=== PATIENT | female | born 1955 | race Caucasian/White ===

== ENCOUNTER 2017-09-10 21:07 | Inpatient (IN) | payer MEDICAID ==
[2017-09-10 21:00] VITALS: BP 128/56
--- NOTE | 2017-09-10 21:00 | NUR ---
RECEIVED PATIENT FROM [facility] VIA AMBULANCE/STRETCHER. PATIENT RECEIVED STABLE WITH NO SIGNS OF PAIN, SOB, OR ACUTE DISTRESS. PT IS 61 Y/O FEMALE, A/O X3-4 & FORGETFUL. PATIENT ADMITTED TO ARU FOR DX OF RIGHT CVA, LEFT SIDED WEAKNESS. PERTINENT ASSESSMENT DONE. PT IS ABLE TO MAKE NEEDS KNOWN. BED IN LOW POSITION X2 SIDE RAILS UP. CALL LIGHT PLACED WITHIN REACH OF PATIENT. ENCOURAGED PT TO USE CALL LIGHT WHEN NEEDING ASSISTANCE. WILL CONTINUE TO MONITOR PATIENT THROUGH SHIFT.
[2017-09-10] MEDS ORDERED: ASPI81TA31 PO (21:42)
[2017-09-10] MEDS ORDERED: DOCU100C36 PO (21:42)
[2017-09-10] MEDS ORDERED: CLOP75TA33 PO (21:42)
[2017-09-10] MEDS ORDERED: METF500T4 PO (21:42)
[2017-09-10] MEDS ORDERED: AMLO10TA2 PO (21:42)
[2017-09-10] MEDS ORDERED: INSU100I14 SQ (21:42)
[2017-09-10] MEDS ORDERED: ATOR40TA PO (21:42)
[2017-09-10] MEDS ORDERED: INSU3INS6 SQ (21:42)
[2017-09-10] MEDS ORDERED: LISI40TA4 PO (21:42)
[2017-09-10] MEDS ORDERED: Z GUARD REMEDY PASTE 57 GM TUBE TOP PRN (22:00)
[2017-09-10] MEDS ORDERED: DEXTROSE 50% 50 ML DISP.SYRIN IV PRN (23:15)
--- NOTE | 2017-09-11 05:33 | NUR ---
patient slept intermittently through the shift. no signs of pain, sob, or acute distress. able to make needs known. vital signs stable through shift. hob elevated >30 degrees. safety measures implemented. call light placed within reach of patient. encouraged pt to use call light when needing to use the restroom. bed in low position x2 side rails up. will endorse to day shift nurse.
[2017-09-11] MEDS: BLOOD SUGAR DIAGNOSTIC 1 EACH STRIP VI SCH ×4 (06:36→20:59)
[2017-09-11 07:53] LABS: BASOPHILS # (AUTO) 0.1 K/uL (0.0-8.0); BASOPHILS % (AUTO) 0.6 % (0.0-2.0); EOSINOPHILS # (AUTO) 0.1 K/uL (0.0-0.7); EOSINOPHILS % (AUTO) 1.8 % (0.0-7.0); HEMOGLOBIN 15.1 g/dL (10.9-14.3); LYMPHOCYTES # (AUTO) 2.1 K/uL (20.0-40.0); LYMPHOCYTES % (AUTO) 25.7 % (20.5-51.5); MEAN CORPUSCULAR HEMOGLOBIN 32.2 uug (24.7-32.8); MEAN CORPUSCULAR HGB CONC 34 g/dL (32.3-35.6); MEAN CORPUSCULAR VOLUME 93.6 fL (75.5-95.3); MONOCYTES # (AUTO) 0.5 K/uL (2.0-10.0); MONOCYTES % (AUTO) 6.8 % (0.0-11.0); NEUTROPHILS # (AUTO) 5.3 K/uL (1.8-8.9); NEUTROPHILS % (AUTO) 65.1 % (38.5-71.5); PLATELET COUNT (AUTO) 304 K/uL (179-408); RED BLOOD CELL COUNT(AUTO) 4.71 MIL/uL (3.63-4.92); WHITE BLOOD COUNT (AUTO) 8.1 K/uL (3.8-11.8)
--- NOTE | 2017-09-11 08:00 | NUR ---
patient noted lying in bed watching tv, no complaints of pain at this time, no signs of distress noted, call light in reach, bed locked and in lowest position, long pauses noted when patient asked questions
[2017-09-11] MEDS: METFORMIN HCL 500 MG TABLET PO SCH (08:31)
[2017-09-11] MEDS: CLOPIDOGREL 75 MG TABLET PO SCH (08:32)
[2017-09-11] MEDS: ASPIRIN 81 MG TAB.CHEW PO SCH (08:32)
[2017-09-11] MEDS: AMLODIPINE 10 MG TABLET PO SCH (08:33)
[2017-09-11] MEDS: LISINOPRIL 20 MG TABLET PO SCH ×2 (08:34→20:56)
[2017-09-11] MEDS ORDERED: Medication Not On Formulary EA (Lisinopril 40 MG) PO SCH (09:00)
[2017-09-11 09:35] VITALS: BP 160/77
[2017-09-11 09:44] LABS: MAGNESIUM 1.7 mg/dL (1.8-2.4); PHOSPHOROUS 4.1 mg/dL (2.5-4.9); POTASSIUM 4.4 mmol/L (3.5-5.1)
[2017-09-11] MEDS: INSULIN REGULAR, HUMAN 300 UNIT/3 ML VIAL SQ PRN ×2 (12:26→17:22)
[2017-09-11 19:30] VITALS: BP 143/66
--- NOTE | 2017-09-11 20:00 | NUR ---
Pt sitting in her wheelchair. AAO x3. VS stable. No acute distress noted. No c/o pain or discomfort. Safety measures maintained. Call light and personal belongings maintained. Will continue to monitor.
[2017-09-11] MEDS: ATORVASTATIN 40 MG TABLET PO SCH (20:56)
[2017-09-11] MEDS: INSULIN REGULAR, HUMAN 300 UNITS/3 ML VIAL SQ PRN (21:01)
--- NOTE | 2017-09-12 05:16 | NUR ---
Pt slept intermittently at night. Stable. Meds given per MD's order. Assisted to the bathroom as needed. Able to make needs known. All needs attended to promptly. Will endorse to day shift RN. Continue to monitor.
[2017-09-12] MEDS: BLOOD SUGAR DIAGNOSTIC 1 EACH STRIP VI SCH ×4 (06:40→20:07)
--- NOTE | 2017-09-12 08:00 | NUR ---
RECEIVED PATIENT AWAKE, ALERT X3. PATIENT WITHDRAWN. MORNING CARE DONE, SPONGE BATH DONE WITH MAXIMUM ASSISTANCE. ASSISTED UP TO BED. NOT IN ANY PAIN OR DISCOMFORT. CALL LIGHT WITHIN REACH.
[2017-09-12] MEDS: CLOPIDOGREL 75 MG TABLET PO SCH (08:22)
[2017-09-12] MEDS: AMLODIPINE 10 MG TABLET PO SCH (08:22)
[2017-09-12] MEDS: ASPIRIN 81 MG TAB.CHEW PO SCH (08:22)
[2017-09-12] MEDS: LISINOPRIL 20 MG TABLET PO SCH ×2 (08:22→20:05)
[2017-09-12] MEDS: METFORMIN HCL 500 MG TABLET PO SCH (08:22)
[2017-09-12] MEDS: INSULIN REGULAR, HUMAN 300 UNIT/3 ML VIAL SQ PRN ×2 (08:23→12:03)
--- NOTE | 2017-09-12 09:00 | NUR ---
UP WITH PHYSICAL THERAPY TOLERATING THERAPY WELL.
--- NOTE | 2017-09-12 11:48 | NUR ---
PATIENT WITH HEADACHE RATED 3/10. BP OF 155/68 ND 73. NO SOB, BLURRED VISION OR NEW WEAKNESS. A/A X3. PAGED DR. ROMERO FOR ORDERS.
--- NOTE | 2017-09-12 13:36 | NUR ---
Head ache is relieved. Patient resting in bed.
[2017-09-12] MEDS: HYDROCHLOROTHIAZIDE 25 MG TABLET PO SCH (15:55)
--- NOTE | 2017-09-12 16:09 | NUR ---
SEEN AND EXAMINED BY DR ROMERO. STILL WITH HEADACHE, TOLERABLE RATED 3/10. PRN TYLENOL GIVEN.
[2017-09-12] MEDS: ACETAMINOPHEN 325 MG TABLET PO PRN (16:11)
--- NOTE | 2017-09-12 19:15 | NUR ---
Pt resting comfortably in bed and watching TV. AAO x3. No new weakness noted. No acute distress noted. No c/o pain or discomfort at this time. HOB 30 degrees elevated and tolerating well. Able to make needs known. Complies slowly. Safety measures maintained. Call light and personal belongings within reach. Will continue to monitor.
[2017-09-12 20:00] VITALS: BP 143/66
[2017-09-12] MEDS: ATORVASTATIN 40 MG TABLET PO SCH (20:06)
[2017-09-12] MEDS: INSULIN REGULAR, HUMAN 300 UNITS/3 ML VIAL SQ PRN (20:09)
--- NOTE | 2017-09-13 05:15 | NUR ---
Pt slept comfortably at night. Meds and insulin coverage given per MD's order. Assisted to the bathroom as needed. All needs attended to promptly. Will endorse to day shift RN. Continue to monitor.
[2017-09-13] MEDS: BLOOD SUGAR DIAGNOSTIC 1 EACH STRIP VI SCH ×4 (06:34→20:47)
--- NOTE | 2017-09-13 08:30 | NUR ---
Received patient awake, alert and oriented, verbally responsive to tactile and verbal stimuli. No SOB, distress or discomforts noted. All needs attended and anticipated. Call light placed within her reach. encouraged patient to use call light whenever assistance is needed. Will continue to monitor.
[2017-09-13 08:36] VITALS: BP 143/77
[2017-09-13] MEDS: LISINOPRIL 20 MG TABLET PO SCH ×2 (09:04→20:47)
[2017-09-13] MEDS: AMLODIPINE 10 MG TABLET PO SCH (09:04)
[2017-09-13] MEDS: ASPIRIN 81 MG TAB.CHEW PO SCH (09:04)
[2017-09-13] MEDS: CLOPIDOGREL 75 MG TABLET PO SCH (09:05)
[2017-09-13] MEDS: HYDROCHLOROTHIAZIDE 25 MG TABLET PO SCH (09:05)
[2017-09-13] MEDS: METFORMIN HCL 500 MG TABLET PO SCH (09:05)
[2017-09-13] MEDS: INSULIN REGULAR, HUMAN 300 UNIT/3 ML VIAL SQ PRN ×3 (12:09→20:51)
--- NOTE | 2017-09-13 12:23 | NUR ---
Patient awake, alert and oriented watching television. no SOB, distress or discomforts noted. all needs attended and anticipated. Call light placed within reach. Will continue to monitor.
[2017-09-13] MEDS: ACETAMINOPHEN 325 MG TABLET PO PRN (15:38)
--- NOTE | 2017-09-13 18:03 | NUR ---
patient awake, alert and oriented, remained stable throughout the shift. All needs attended and anticipated. call light placed within reach. patient was encouraged to use call light whenever assistance is needed. No shortness of breath, distress or any display of discomforts noted at this time. Will continue to monitor.
--- NOTE | 2017-09-13 18:54 | NUR ---
Patient remained stable throughout the shift. all needs were attended and anticipated. call light placed within her reach. patient was encouraged to use call light whenever assistance is needed. bed alarm on for safety. Will endorse to incoming shift.
[2017-09-13 19:30] VITALS: BP 111/49
--- NOTE | 2017-09-13 19:30 | NUR ---
Received patient from day shift nurse. Shift report at bedside. Patient stable at start of shift, lying comfortably in bed with no signs of pain, sob, or acute distress. pertinent assessment completed. vital signs stable at start of shift. bed in low position x2 side rails up. bed alarm on and checked at start of shift. call light placed within reach of pt. will continue to monitor pt through shift.
[2017-09-13] MEDS: ATORVASTATIN 40 MG TABLET PO SCH (20:46)
--- NOTE | 2017-09-13 20:46 | NUR ---
Patient Diastolic BP low at start of shift. BP 111/49. Held bedtime BP med. will continue to monitor patient and reassess BP.
[2017-09-14] MEDS: ACETAMINOPHEN 325 MG TABLET PO PRN ×3 (00:11→20:14)
--- NOTE | 2017-09-14 05:54 | NUR ---
Patient stable through shift. no signs of sob or acute distress. slept intermittently through shift. complained of headache during the night. administered Tylenol PRN as ordered per md. patient slept after administration of Tylenol. vital signs stable through shift. all needs attended to. medications administered as ordered per md. safety measures implemented. call light within reach of pt. will endorse to day shift nurse.
[2017-09-14] MEDS: BLOOD SUGAR DIAGNOSTIC 1 EACH STRIP VI SCH ×4 (06:31→20:19)
--- NOTE | 2017-09-14 07:30 | NUR ---
Received report from the night nurse. Patient seen upon rounds, in bed, asleep at this time, not in distress, respirations are even and regular, skin is warm and dry to touch. Patient has no signs and symptoms of hypoglycemia or hyperglycemia at this time. Bed is locked, alarm is on, and kept on low position for safety, will continue to monitor.
[2017-09-14] MEDS: CLOPIDOGREL 75 MG TABLET PO SCH (08:09)
[2017-09-14] MEDS: METFORMIN HCL 500 MG TABLET PO SCH (08:09)
[2017-09-14] MEDS: ASPIRIN 81 MG TAB.CHEW PO SCH (08:11)
[2017-09-14] MEDS: INSULIN REGULAR, HUMAN 300 UNIT/3 ML VIAL SQ PRN ×4 (08:16→20:22)
[2017-09-14] MEDS: HYDROCHLOROTHIAZIDE 25 MG TABLET PO SCH (08:19)
--- NOTE | 2017-09-14 13:00 | NUR ---
Seen and examined by Dr. Whelan, from [facility] medical group with new orders noted.
[2017-09-14] MEDS: LISINOPRIL 20 MG TABLET PO SCH ×2 (17:51→20:15)
[2017-09-14] MEDS: AMLODIPINE 10 MG TABLET PO SCH (17:52)
--- NOTE | 2017-09-14 18:15 | NUR ---
Patient is in bed, awake and alert, verbally responsive, not in distress. Accucheck done, no signs and symptom of hypoglycemia or hyperglycemia at this time, patient handled gently during care, needs attended promptly, due medications given. Kept comfortable, clean and dry. Call light is in reach.
[2017-09-14 19:30] VITALS: BP 131/61
--- NOTE | 2017-09-14 19:30 | NUR ---
RECEIVED PATIENT FROM DAY SHIFT NURSE. SHIFT REPORT AT BEDSIDE. PATIENT STABLE, LYING IN BED COMFORTABLY WITH NO SIGNS OF PAIN, SOB, OR ACUTE DISTRESS. PERTINENT ASSESSMENT COMPLETED. BED ALARM ON, BED IN LOW POSITION X2 SIDE RAILS UP. ENCOURAGED PATIENT TO USE CALL LIGHT WHEN NEEDING ASSISTANCE. CALL LIGHT PLACED WITHIN REACH OF PATIENT. WILL CONTINUE TO MONITOR PATIENT THROUGH SHIFT.
[2017-09-14] MEDS: ATORVASTATIN 40 MG TABLET PO SCH (20:14)
--- NOTE | 2017-09-15 06:24 | NUR ---
PATIENT STABLE THROUGH THE SHIFT. NO SIGNS OF PAIN, SOB, OR ACUTE DISTRESS. PT SLEPT INTERMITTENTLY. ALL MEDS ADMINISTERED ORDERED PER MD. ACCUCHECK DONE THIS AM WITH BS OF 148. WILL ENDORSE TO DAY SHIFT NURSE TO COVER BS WITH INSULIN WITH BREAKFAST TRAY. ALL NEEDS ATTENDED TO. SAFETY MEASURES IMPLEMENTED. CALL LIGHT WITHIN REACH OF PT. BED IN LOW POSITION X2 SIDE RAILS UP WITH BED ALARM ON. NO CHANGES IN CONDITION. WILL ENDORSE TO DAY SHIFT NURSE.
[2017-09-15] MEDS: BLOOD SUGAR DIAGNOSTIC 1 EACH STRIP VI SCH ×4 (06:31→21:05)
[2017-09-15 06:53] LABS: CREATININE 1.9 mg/dL (0.6-1.3); MAGNESIUM 1.8 mg/dL (1.8-2.4); PHOSPHOROUS 4.5 mg/dL (2.5-4.9)
[2017-09-15 07:03] LABS: THYROID STIMULATING HORMONE 0.93 mIU/mL (0.358-3.740)
[2017-09-15 07:25] LABS: BASOPHILS % (AUTO) 0.6 % (0.0-2.0); EOSINOPHILS % (AUTO) 0.2 % (0.0-7.0); HEMOGLOBIN 14.1 g/dL (10.9-14.3); LYMPHOCYTES # (AUTO) 0.4 K/uL (20.0-40.0); LYMPHOCYTES % (AUTO) 4.4 % (20.5-51.5); MEAN CORPUSCULAR HEMOGLOBIN 31.9 uug (24.7-32.8); MEAN CORPUSCULAR HGB CONC 35 g/dL (32.3-35.6); MEAN CORPUSCULAR VOLUME 92.5 fL (75.5-95.3); MONOCYTES # (AUTO) 1.1 K/uL (2.0-10.0); MONOCYTES % (AUTO) 13.6 % (0.0-11.0); NEUTROPHILS # (AUTO) 6.5 K/uL (1.8-8.9); NEUTROPHILS % (AUTO) 81.2 % (38.5-71.5); PLATELET COUNT (AUTO) 286 K/uL (179-408); RED BLOOD CELL COUNT(AUTO) 4.43 MIL/uL (3.63-4.92)
[2017-09-15 08:37] VITALS: BP 105/62
[2017-09-15] MEDS: AMLODIPINE 10 MG TABLET PO SCH (08:39)
[2017-09-15] MEDS: LISINOPRIL 20 MG TABLET PO SCH ×2 (08:40→21:04)
[2017-09-15] MEDS: ASPIRIN 81 MG TAB.CHEW PO SCH (08:55)
[2017-09-15] MEDS: HYDROCHLOROTHIAZIDE 25 MG TABLET PO SCH (08:55)
[2017-09-15] MEDS: CLOPIDOGREL 75 MG TABLET PO SCH (08:56)
[2017-09-15] MEDS: METFORMIN HCL 500 MG TABLET PO SCH (08:56)
[2017-09-15] MEDS: ACETAMINOPHEN 325 MG TABLET PO PRN ×2 (08:58→21:05)
[2017-09-15] MEDS: INSULIN REGULAR, HUMAN 300 UNITS/3 ML VIAL SQ PRN ×4 (08:58→21:08)
--- NOTE | 2017-09-15 13:40 | NUR ---
pt seen on rounding. pt continues to be stable. pt had low bp. witheld all bp meds for bp for 100s. pt had elevated temp of 100.7 given tylenol. elevated termperature reduced to normal values. pt tolerates room air. pt given insulin per level ordered. pt encouraged to eat. pt refuses. pt participated in therapy. pt sleeps interminently. reassesd to see if pt shows signs of stroke. woke up the patient. maintained baseline NIH. pt given stroke education. pt needs reinforcement. will continue to monitor.
--- NOTE | 2017-09-15 18:54 | NUR ---
pt stable throughout the day. pt slept interminently. pt awaken easily. no nih scale changes. pt remained ao x 3. will endorse to health and safety technician nurse.
[2017-09-15] MEDS: ATORVASTATIN 40 MG TABLET PO SCH (21:03)
--- NOTE | 2017-09-15 21:54 | NUR ---
Pt in bed resting comfortably and watching TV. AAO x3. No acute distress noted. No c/o pain or discomfort. Temperature slightly elevated, Tylenol given and other interventions done. Will continue to monitor. Other vital signs stable. Meds and insulin coverage given as prescribed and needed. Safety measures maintained. Call light and personal belongings within reach.
[2017-09-16] MEDS: BLOOD SUGAR DIAGNOSTIC 1 EACH STRIP VI SCH ×5 (06:40→20:21)
--- NOTE | 2017-09-16 06:42 | NUR ---
Pt slept intermittently at night. Temp is normal 98.1. All needs attended to promptly. Assisted to the bathroom as needed. Will endorse to day shift RN. Continue to monitor.
[2017-09-16 07:36] VITALS: BP 106/53
[2017-09-16] MEDS: METFORMIN HCL 500 MG TABLET PO SCH (08:21)
[2017-09-16] MEDS: CLOPIDOGREL 75 MG TABLET PO SCH (08:21)
[2017-09-16] MEDS: LISINOPRIL 20 MG TABLET PO SCH ×2 (08:21→20:26)
[2017-09-16] MEDS: HYDROCHLOROTHIAZIDE 25 MG TABLET PO SCH (08:21)
[2017-09-16] MEDS: ASPIRIN 81 MG TAB.CHEW PO SCH (08:21)
[2017-09-16] MEDS: AMLODIPINE 10 MG TABLET PO SCH (08:21)
--- NOTE | 2017-09-16 09:00 | NUR ---
pt seen on rounding. pt continues to show signs of confusion. pt found to have urinated on the floor. vitals stable. pt assisted to the bathroom. dance master nurse states that pt had mild fever. no fever noted when rechecked. pt given meds as prescribed. withheld bp meds due to decreased blood pressure pt will participate in therapy.will continue to monitor.
[2017-09-16] MEDS: INSULIN REGULAR, HUMAN 300 UNIT/3 ML VIAL SQ PRN ×2 (12:39→16:40)
--- NOTE | 2017-09-16 18:17 | NUR ---
pt stable throughout the day. pt continues to be alert and oriented. no sob noted. pt maintained baseline NIH score. stroke educations given. pt was passive and needs reinforcement. pt had blood sugar 260 before dinner. insulin given. will endorse to shift superintendent nurse.
[2017-09-16] MEDS: ZOLPIDEM 5 MG TABLET PO PRN (20:26)
[2017-09-16] MEDS: ATORVASTATIN 40 MG TABLET PO SCH (20:26)
--- NOTE | 2017-09-16 21:00 | NUR ---
Pt resting in bed and watching TV. AAO x3. Vital signs stable. No s/s of fever at this time. Blood sugar normal, no insulin given. BP med held due to decreased BP. No acute distress noted. No c/o pain or discomfort. Safety measures maintained. Call light and personal belongings within reach. Will continue to monitor.
[2017-09-16 21:54] VITALS: BP 115/60
--- NOTE | 2017-09-17 05:42 | NUR ---
Pt slept intermittently at night. Meds given per MD's order. No new changes in regards to condition. Stable t/o the shift. All needs attended to promptly and assisted to the bathroom as needed. Will endorse to day shift RN. Continue to monitor.
[2017-09-17] MEDS: DOCUSATE SODIUM 100 MG CAPSULE PO PRN (06:36)
[2017-09-17] MEDS: BLOOD SUGAR DIAGNOSTIC 1 EACH STRIP VI SCH ×4 (06:38→20:59)
[2017-09-17 07:02] VITALS: BP 121/65
[2017-09-17] MEDS: HYDROCHLOROTHIAZIDE 25 MG TABLET PO SCH (09:00)
[2017-09-17] MEDS: AMLODIPINE 10 MG TABLET PO SCH (09:00)
[2017-09-17] MEDS: LISINOPRIL 20 MG TABLET PO SCH (09:00)
[2017-09-17] MEDS: METFORMIN HCL 500 MG TABLET PO SCH (10:49)
[2017-09-17] MEDS: CLOPIDOGREL 75 MG TABLET PO SCH (10:49)
[2017-09-17] MEDS: ASPIRIN 81 MG TAB.CHEW PO SCH (10:50)
--- NOTE | 2017-09-17 12:15 | NUR ---
SBAR report received near bedside, board updated. Pt awake, alert, and oriented. Pt assessed, no SOB or pain. Pt compliant with routine morning medication, BP 106/62 hence BP medications held this morning, plan of care discussed with Pt. Stroke assessment and Pt education provided, no changes to scale. Call light and personal items within reach. Bed alarm on and Pt reminded to call for any assistance. All safety and comfort measures met at this time. Will continue to monitor.
[2017-09-17] MEDS: INSULIN REGULAR, HUMAN 300 UNIT/3 ML VIAL SQ PRN (12:27)
[2017-09-17] MEDS: ACETAMINOPHEN 325 MG TABLET PO PRN (13:27)
--- NOTE | 2017-09-17 13:29 | NUR ---
Pt reports having a headache while working with PT. Tylenol administered per PRN orders, V/S 107/62, with no c/o dizziness, simply states feeling "a little tired but fine". Will continue to monitor.
--- NOTE | 2017-09-17 14:31 | NUR ---
INTERDISCIPLINARY TEAM CONFERENCE
--- NOTE | 2017-09-17 19:09 | NUR ---
Pt resting comfortably in bed and denies any discomfort or pain at this time. Call light within reach and Pt reminded to utilize for all toileting needs. Bed alarm on. Will endorse to oncoming maintenance supervisor 2nd shift.
--- NOTE | 2017-09-17 19:35 | NUR ---
Received pt in bed, AAO x 3 watching television. Verbally responsive and able to make needs known. Denies pain or discomfort at this time. No acute distress noted. All safety measures and fall precautions maintained. Call light and all personal belongings within reach. Will continue to monitor.
[2017-09-17 20:17] VITALS: BP 124/69
[2017-09-17] MEDS: ATORVASTATIN 40 MG TABLET PO SCH (20:56)
[2017-09-18] MEDS: BLOOD SUGAR DIAGNOSTIC 1 EACH STRIP VI SCH ×4 (06:31→20:31)
--- NOTE | 2017-09-18 07:03 | NUR ---
Pt slept comfortably throughout the shift. No complaints of pain or discomfort throughout shift. No acute distress noted. Kept clean and dry. All needs anticipated and met accordingly. All safety measures and fall precautions maintained. Call light within reach. Will endorse to AM shift.
[2017-09-18 08:02] VITALS: BP 128/72
[2017-09-18] MEDS: CLOPIDOGREL 75 MG TABLET PO SCH (09:40)
[2017-09-18] MEDS: ASPIRIN 81 MG TAB.CHEW PO SCH (09:40)
[2017-09-18] MEDS: AMLODIPINE 10 MG TABLET PO SCH (09:43)
[2017-09-18] MEDS: HYDROCHLOROTHIAZIDE 25 MG TABLET PO SCH (09:43)
[2017-09-18 12:11] LABS: BASOPHILS # (AUTO) 0.1 K/uL (0.0-8.0); BASOPHILS % (AUTO) 0.9 % (0.0-2.0); EOSINOPHILS % (AUTO) 0.2 % (0.0-7.0); HEMATOCRIT 42.8 % (31.2-41.9); HEMOGLOBIN 14.7 g/dL (10.9-14.3); LYMPHOCYTES # (AUTO) 1.4 K/uL (20.0-40.0); MEAN CORPUSCULAR HEMOGLOBIN 31.8 uug (24.7-32.8); MEAN CORPUSCULAR HGB CONC 34 g/dL (32.3-35.6); MEAN CORPUSCULAR VOLUME 92.5 fL (75.5-95.3); MONOCYTES # (AUTO) 0.6 K/uL (2.0-10.0); MONOCYTES % (AUTO) 10.3 % (0.0-11.0); NEUTROPHILS # (AUTO) 4.1 K/uL (1.8-8.9); NEUTROPHILS % (AUTO) 65.6 % (38.5-71.5); PLATELET COUNT (AUTO) 282 K/uL (179-408); RED BLOOD CELL COUNT(AUTO) 4.63 MIL/uL (3.63-4.92); WHITE BLOOD COUNT (AUTO) 6.3 K/uL (3.8-11.8)
[2017-09-18 12:24] LABS: BILIRUBIN,TOTAL 0.3 mg/dL (0.2-1.0); CREATININE 1.3 mg/dL (0.6-1.3); PHOSPHOROUS 3.3 mg/dL (2.5-4.9); POTASSIUM 4.5 mmol/L (3.5-5.1); TOTAL PROTEIN, SERUM 7.6 g/dL (6.4-8.2)
[2017-09-18] MEDS: INSULIN REGULAR, HUMAN 300 UNIT/3 ML VIAL SQ PRN (17:19)
--- NOTE | 2017-09-18 18:58 | NUR ---
Pt seen by . No new orders. Pt visited by parents, requesting to be contacted by case supervisor for further information on d/c options and financial planning. nurse practitioner manager Ben contacted, will continue to follow up and endorse to night baker.
--- NOTE | 2017-09-18 19:30 | NUR ---
Received pt up in wheelchair, watching television. Alert and oriented, verbally responsive and able to make needs known. Denies pain or discomfort at this time. No acute distress noted. All safety measures and fall precautions maintained. Call light and all personal belongings within reach. Will continue to monitor.
[2017-09-18 20:06] VITALS: BP 122/64
[2017-09-18] MEDS: ATORVASTATIN 40 MG TABLET PO SCH (20:28)
[2017-09-18] MEDS: INSULIN REGULAR, HUMAN 300 UNITS/3 ML VIAL SQ PRN (20:34)
--- NOTE | 2017-09-19 06:04 | NUR ---
Pt slept comfortably throughout the shift. No complaints of pain or discomfort. No acute distress. All medications given as ordered and well tolerated. Kept clean, dry and comfortable. All needs anticipated and met accordingly. Call light and all personal belongings within reach. All safety measures and fall precautions maintained. Will continue to monitor. Will endorse to AM shift.
[2017-09-19] MEDS: BLOOD SUGAR DIAGNOSTIC 1 EACH STRIP VI SCH ×4 (06:30→20:37)
[2017-09-19 08:30] VITALS: BP 134/64
[2017-09-19] MEDS: HYDROCHLOROTHIAZIDE 25 MG TABLET PO SCH (09:16)
[2017-09-19] MEDS: AMLODIPINE 10 MG TABLET PO SCH (09:17)
[2017-09-19] MEDS: ASPIRIN 81 MG TAB.CHEW PO SCH (09:17)
[2017-09-19] MEDS: CLOPIDOGREL 75 MG TABLET PO SCH (09:19)
[2017-09-19] MEDS: INSULIN REGULAR, HUMAN 300 UNIT/3 ML VIAL SQ PRN (12:07)
[2017-09-19] MEDS: INSULIN REGULAR, HUMAN 300 UNITS/3 ML VIAL SQ PRN ×2 (16:34→20:42)
[2017-09-19] MEDS: ATORVASTATIN 40 MG TABLET PO SCH (20:35)
[2017-09-19 20:43] VITALS: BP 116/54
--- NOTE | 2017-09-20 01:00 | NUR ---
pt seen on rounding. pt continues to have flat affect. pt found on the edge of the bed. pt assisted to be higher up the bed. pt had poor intake. pt encouraged to eat. pt states that she had enought. blood sugar checked. insulin given per coverage. pt maintained NIH scale baseline. will continue to monitor.
--- NOTE | 2017-09-20 05:46 | NUR ---
pt stable throughout the night. no changes. will endorse to cook night nurse.
[2017-09-20] MEDS: BLOOD SUGAR DIAGNOSTIC 1 EACH STRIP VI SCH ×4 (06:41→20:19)
--- NOTE | 2017-09-20 07:50 | NUR ---
Received patient awake, alert, verbally responsive, not in any form of acute distress. She denies any pain or discomfort at this time. Call light placed within reach. Assisted to her needs.
[2017-09-20 08:35] VITALS: BP 128/73
[2017-09-20] MEDS: ASPIRIN 81 MG TAB.CHEW PO SCH (09:17)
[2017-09-20] MEDS: CLOPIDOGREL 75 MG TABLET PO SCH (09:17)
[2017-09-20] MEDS: HYDROCHLOROTHIAZIDE 25 MG TABLET PO SCH (09:18)
[2017-09-20] MEDS: AMLODIPINE 10 MG TABLET PO SCH (09:18)
[2017-09-20] MEDS: INSULIN REGULAR, HUMAN 300 UNIT/3 ML VIAL SQ PRN ×2 (13:37→17:06)
--- NOTE | 2017-09-20 19:30 | NUR ---
Received pt resting comfortably in bed and watching TV. AAO x4. Vital signs stable. No acute distress noted. No c/o pain or discomfort. Safety measures maintained. Call light and personal belongings within reach. Will continue to monitor.
[2017-09-20] MEDS: ATORVASTATIN 40 MG TABLET PO SCH (20:18)
[2017-09-20] MEDS: INSULIN REGULAR, HUMAN 300 UNITS/3 ML VIAL SQ PRN (20:19)
[2017-09-20 21:45] VITALS: BP 118/67
--- NOTE | 2017-09-21 05:21 | NUR ---
Pt slept intermittently at night. Pt has to be reminded or asked if she wants to go use the bathroom because pt would not call at all and would not void. Meds and insulin coverage given as prescribed. Assisted to the bathroom as needed. All needs attended to promptly. Will endorse to day shift RN. Continue to monitor.
[2017-09-21] MEDS: BLOOD SUGAR DIAGNOSTIC 1 EACH STRIP VI SCH ×4 (06:48→20:09)
[2017-09-21 07:30] VITALS: BP 106/58
[2017-09-21] MEDS: CLOPIDOGREL 75 MG TABLET PO SCH (08:58)
[2017-09-21] MEDS: ASPIRIN 81 MG TAB.CHEW PO SCH (08:58)
[2017-09-21] MEDS: AMLODIPINE 10 MG TABLET PO SCH (09:00)
[2017-09-21] MEDS: HYDROCHLOROTHIAZIDE 25 MG TABLET PO SCH (09:00)
[2017-09-21] MEDS: INSULIN REGULAR, HUMAN 300 UNIT/3 ML VIAL SQ PRN (11:57)
--- NOTE | 2017-09-21 20:00 | NUR ---
PT RESTING IN BED. NO DISTRESS NOTED. NO INSULIN COVERAGE, BS 106. COMPLAINT WITH NURSING CARE. CLEAN AND DRY. SAFETY MAINTAINED. CALL LIGHT WITHIN REACH. BED ALARM ON.
[2017-09-21] MEDS: ATORVASTATIN 40 MG TABLET PO SCH (20:09)
[2017-09-21 21:36] VITALS: BP 127/66
[2017-09-22] MEDS: BLOOD SUGAR DIAGNOSTIC 1 EACH STRIP VI SCH ×4 (06:33→21:34)
--- NOTE | 2017-09-22 07:40 | NUR ---
PT RESTING IN BED. NO DISTRESS NOTED. BS 130, NO COVERAGE NEEDED. VOIDED WELL THROUGHOUT THE NIGHT. CLEAN AND DRY. SAFETY MAINTAINED. CALL LIGHT WITHIN REACH.
[2017-09-22] MEDS: AMLODIPINE 10 MG TABLET PO SCH (09:00)
[2017-09-22] MEDS: HYDROCHLOROTHIAZIDE 25 MG TABLET PO SCH (09:00)
[2017-09-22] MEDS: ASPIRIN 81 MG TAB.CHEW PO SCH (09:48)
[2017-09-22] MEDS: CLOPIDOGREL 75 MG TABLET PO SCH (09:48)
[2017-09-22] MEDS: INSULIN REGULAR, HUMAN 300 UNIT/3 ML VIAL SQ PRN (12:30)
--- NOTE | 2017-09-22 18:59 | NUR ---
SBAR report received, board updated. Pt assessed, no pain or SOB. Pt has remained stabled throughout the shift. Call light within reach. All comfort and safety needs at this time. Will endorse to shift coordinator.
--- NOTE | 2017-09-22 19:45 | NUR ---
Received pt in bed, watching television. Awake, alert, verbally responsive and able to make needs known. Denies pain or discomfort at this time.Vital signs taken. No acute distress noted. All safety measures and fall precautions maintained. Call light and all personal belongings within reach. Will continue to monitor.
[2017-09-22] MEDS: ATORVASTATIN 40 MG TABLET PO SCH (21:35)
--- NOTE | 2017-09-22 21:35 | NUR ---
Accu check done, blood sugar 123 mg/dL. No coverage needed.
[2017-09-23 03:30] VITALS: BP 126/65
[2017-09-23] MEDS: BLOOD SUGAR DIAGNOSTIC 1 EACH STRIP VI SCH ×4 (06:54→21:52)
--- NOTE | 2017-09-23 07:50 | NUR ---
Pt able to sleep comfortably throughout the night. No complaints of pain or discomfort throughout shift. Breathing even and nonlabored. No acute distress noted. Kept clean and dry. All needs anticipated. Safety measures provided. Call light within reach. Will endorse to AM shift
[2017-09-23 08:48] VITALS: BP 121/68
[2017-09-23] MEDS: ASPIRIN 81 MG TAB.CHEW PO SCH (09:00)
[2017-09-23] MEDS: CLOPIDOGREL 75 MG TABLET PO SCH (09:00)
[2017-09-23] MEDS: AMLODIPINE 10 MG TABLET PO SCH (09:00)
[2017-09-23] MEDS: HYDROCHLOROTHIAZIDE 25 MG TABLET PO SCH (09:00)
--- NOTE | 2017-09-23 10:00 | NUR ---
pt seen on rounding. pt vitals more stable. blood pressure more stable compared to previous days. pt continues to have flat affect but nih scale is kept baseline. shift supervisor film processing nurse states that pt has not had bm for a few days but pt is ambulatory with voiding and bm. will continue to monitorl
[2017-09-23] MEDS: INSULIN REGULAR, HUMAN 300 UNIT/3 ML VIAL SQ PRN (11:36)
[2017-09-23] MEDS: DOCUSATE SODIUM 100 MG CAPSULE PO PRN (17:03)
--- NOTE | 2017-09-23 18:40 | NUR ---
pt hs been stable throughout the day. pt given colace for stool softerner. pt states that she had a bm last night. pt is min/ contact guard on walking with a walker. no sob noted. pt maintained baseline throughout the day. will endorse to senior patrol agent nurse.
[2017-09-23 21:47] VITALS: BP 134/78
[2017-09-23] MEDS: ATORVASTATIN 40 MG TABLET PO SCH (21:52)
--- NOTE | 2017-09-24 04:07 | NUR ---
Patient stable at start of shift, lying comfortably in bed with no signs of pain, sob, or acute distress. pertinent assessment completed. Vital signs taken and recorded. vital signs stable at start of shift. bed in low position x2 side rails up. bed alarm on and checked at start of shift. call light placed within reach of pt. will continue to monitor pt through shift.
[2017-09-24] MEDS: BLOOD SUGAR DIAGNOSTIC 1 EACH STRIP VI SCH ×4 (06:53→21:04)
[2017-09-24 08:00] VITALS: BP 132/74
[2017-09-24] MEDS: ASPIRIN 81 MG TAB.CHEW PO SCH (09:24)
[2017-09-24] MEDS: CLOPIDOGREL 75 MG TABLET PO SCH (09:25)
[2017-09-24] MEDS: HYDROCHLOROTHIAZIDE 25 MG TABLET PO SCH (09:25)
[2017-09-24] MEDS: AMLODIPINE 10 MG TABLET PO SCH (09:26)
--- NOTE | 2017-09-24 14:51 | NUR ---
SBAR report received near bedside, board updated. Pt assessed, alert and oriented x3, no c/o pain and no SOB. Pt compliant with all routine morning medications. Pt reports having slept well last night. Pt voiding x1 and linens changed. Pt able to make needs known. Call light and personal items within reach. Bed alarm on. All comfort and safety measures addressed. Will continue to monitor.
--- NOTE | 2017-09-24 15:37 | NUR ---
Interdisciplinary Team Conference
[2017-09-24] MEDS: INSULIN REGULAR, HUMAN 300 UNIT/3 ML VIAL SQ PRN (17:42)
--- NOTE | 2017-09-24 18:50 | NUR ---
Pt has remained stable throughout this shift with no changes to plan of care. Last blood sugar level prior to dinner was 169, 3 units of coverage provided. All safety and comfort needs met at this time. Call light within reach. Will continue to monitor and endorse to tip length checker.
--- NOTE | 2017-09-24 19:20 | NUR ---
Received pt resting comfortably in bed and watching TV. AAO x3. No acute distress noted. No c/o pain or discomfort. Safety measures maintained. Call light and personal belongings within reach. Will continue to monitor.
[2017-09-24 20:51] VITALS: BP 129/74
[2017-09-24] MEDS: ATORVASTATIN 40 MG TABLET PO SCH (21:04)
--- NOTE | 2017-09-25 05:54 | NUR ---
Pt slept intermittently at night. Vital signs stable. Meds given per MD's order. No insulin coverage, accucheck 119. Pt has been stable t/o the shift. All needs attended to promptly. Will endorse to day shift RN. Continue to monitor.
[2017-09-25] MEDS: BLOOD SUGAR DIAGNOSTIC 1 EACH STRIP VI SCH ×4 (06:30→20:07)
[2017-09-25 07:51] VITALS: BP 112/66
[2017-09-25] MEDS: INSULIN REGULAR, HUMAN 300 UNIT/3 ML VIAL SQ PRN (07:55)
[2017-09-25] MEDS: ASPIRIN 81 MG TAB.CHEW PO SCH (08:05)
[2017-09-25] MEDS: HYDROCHLOROTHIAZIDE 25 MG TABLET PO SCH (08:05)
[2017-09-25] MEDS: AMLODIPINE 10 MG TABLET PO SCH (08:05)
[2017-09-25] MEDS: CLOPIDOGREL 75 MG TABLET PO SCH (08:05)
--- NOTE | 2017-09-25 08:07 | NUR ---
pt seen on rounding. pt continues to have flat affect.pt needs instructions to do daily activities. pt nih scale remains the same. no new injuries noted. pt took meds whole. vitals stable. will continue to monitor.
--- NOTE | 2017-09-25 11:19 | NUR ---
I agree Addendum: 09/25/17 at 1120 by DIONNA STRATTON OT Amended: Links added.
[2017-09-25] MEDS: DOCUSATE SODIUM 100 MG CAPSULE PO PRN (18:50)
--- NOTE | 2017-09-25 19:30 | NUR ---
Pt resting comfortably in bed. AAO x3. No acute distress noted. No c/o pain or discomfort. Pt to be discharged tomorrow. Safety measures maintained. Call light and personal belongings within reach. Will continue to monitor.
[2017-09-25] MEDS: ATORVASTATIN 40 MG TABLET PO SCH (20:07)
[2017-09-25] MEDS: ZOLPIDEM 5 MG TABLET PO PRN (20:07)
[2017-09-25 20:08] VITALS: BP 108/64
[2017-09-25] MEDS: INSULIN REGULAR, HUMAN 300 UNITS/3 ML VIAL SQ PRN (20:09)
--- NOTE | 2017-09-26 05:31 | NUR ---
Patient slept comfortably t/o the night. All needs attended to promptly. Discharge today and med recon in chart. Vital signs stable. All meds and insulin coverage given per MD's order. Will endorse to day shift RN. Continue to monitor.
[2017-09-26] MEDS: BLOOD SUGAR DIAGNOSTIC 1 EACH STRIP VI SCH ×2 (06:32→11:58)
--- NOTE | 2017-09-26 07:30 | NUR ---
pt seen on rounding. pt continues to have flat affect. pt continues to swallow pills whole . no signs of acute distress. pt continues to need reinforcement and directions. will continue to monitor.
[2017-09-26] MEDS: CLOPIDOGREL 75 MG TABLET PO SCH (08:49)
[2017-09-26] MEDS: ASPIRIN 81 MG TAB.CHEW PO SCH (08:49)
[2017-09-26] MEDS: AMLODIPINE 10 MG TABLET PO SCH (08:50)
[2017-09-26] MEDS: HYDROCHLOROTHIAZIDE 25 MG TABLET PO SCH (08:50)
[2017-09-26] MEDS: INSULIN REGULAR, HUMAN 300 UNIT/3 ML VIAL SQ PRN ×2 (08:50→12:09)
[2017-09-26 10:54] VITALS: BP 110/64
--- NOTE | 2017-09-26 14:59 | NUR ---
PT LEFT AT 1415. pt vitals stable. family was given instructions about discharge. pt family given prescriptions. family verbalizes understanding. pf plan of care. pt continues to have NIH score baseline. pt left with the ambulance. pt left with belongings. pt signed discharge summary and belongings list. no signs of acute distress. pt left with wheelchair and bedside commode picked up by family
== END 2017-09-26 14:15 | disposition home health service (06) | DRG 58 ==
PROVIDERS: ADMIT Physical Medicine & Rehabilitation Pain Medicine; ATTEND Physical Medicine & Rehabilitation Pain Medicine
DX: I69.354 Hemiplegia and hemiparesis following cerebral infarction affecting left non-dominant side (principal); E11.22 Type 2 diabetes mellitus with diabetic chronic kidney disease; N18.3 Chronic kidney disease, stage 3 (moderate); I12.9 Hypertensive chronic kidney disease with stage 1 through stage 4 chronic kidney disease, or unspecified chronic kidney disease; R29.810 Facial weakness; R47.89 Other speech disturbances; R26.9 Unspecified abnormalities of gait and mobility; Z87.891 Personal history of nicotine dependence; R50.9 Fever, unspecified
CPT/HCPCS: 36415; 70030-TC; 83735; 84100; 84443; 85025; 92507; 92523; 97110; 97112; 97116; 97165; 97530; 97535; A4663; J1815